=== PATIENT | female | born 1995 ===

== ENCOUNTER 2017-03-26 10:40 | Emergency (ER) | payer MEDICAID ==
[2017-03-26 10:40] VITALS: BMI 18.4
[2017-03-26 10:52] VITALS: BP 97/61; PULSE 76; RESP 15; TEMP 97.8; O2SAT 99
--- NOTE | 2017-03-26 11:02 | C.PDOC ---
History Of Present Illness 21 yo female, hx of asthma, presents with subjective fever, cough, sore throat, x 1 day, pt states no n/v/d, cough, abdominal pain, urinary changes, currently on period. no ear pain. (+)body aches Time Seen by Provider: 03/26/17 10:53 Chief Complaint (Nursing): Flu-like Symptoms Past Medical History Reviewed: Historical Data, Nursing Documentation, Vital Signs Vital Signs: Last Vital Signs Temp 97.8 F 03/26/17 10:50 Pulse 76 03/26/17 10:50 Resp 15 03/26/17 10:50 BP 97/61 L 03/26/17 10:50 Pulse Ox 99 03/26/17 11:42 - Medical History PMH: Anxiety, Asthma, Bipolar Disorder, Gastritis, Pancreatitis, Seizures ( denies 03/26/17) Denies: Diabetes, HIV, HTN, Chronic Kidney Disease, Sexually Transmitted Disease Family History: States: Unknown Family Hx - Social History Hx Tobacco Use: No Hx Alcohol Use: No Hx Substance Use: Yes (denies 03/26) - Immunization History Hx Tetanus Toxoid Vaccination: No Hx Influenza Vaccination: No Hx Pneumococcal Vaccination: No Review Of Systems Except As Marked, All Systems Reviewed And Found Negative. Constitutional: Positive for: Fever ENT: Positive for: Throat Pain Respiratory: Positive for: Cough. Negative for: Hemoptysis Physical Exam - Physical Exam Appears: Well, No Acute Distress, Other (speaking full sentences in nad) Skin: Normal Color, Warm, Dry Eye(s): bilateral: Normal Inspection, PERRL, EOMI Ear(s): Bilateral: Normal Nose: Normal Oral Mucosa: Moist Tongue: Normal Appearing Lips: Normal Appearing Throat: Erythema, No Exudate Neck: Normal Cardiovascular: Rhythm Regular Respiratory: Normal Breath Sounds Gastrointestinal/Abdominal: Normal Exam, Soft, No Tenderness, No Guarding, No Rebound Back: Normal Inspection Extremity: Normal ROM ED Course And Treatment O2 Sat by Pulse Oximetry: 99 Medical Decision Making Medical Decision Making: suspected viral syndrome. r/o pna, strep, influenza. pt reassesed. well appearingspeaking full sentences. stable for outpt management. advise outpt f/u and return precautions Disposition - Disposition Disposition: HOME/ ROUTINE Disposition Time: 11:41 Condition: STABLE Additional Instructions: please see your doctor/clinic. return to er with worsening symptoms or concerns. Prescriptions: Acetaminophen [Tylenol Extra Strength] 500 mg PO Q4 PRN #30 tablet PRN Reason: Fever >100.4 F Instructions: Viral Syndrome (ED) Forms: School Excuse - Clinical Impression Clinical Impression: Viral syndrome
--- NOTE | 2017-03-26 12:06 | RAD ---
HISTORY: Cough. COMPARISON: No prior. TECHNIQUE: Chest PA and lateral FINDINGS: LUNGS: No active pulmonary disease. PLEURA: No significant pleural effusion identified. No pneumothorax apparent. CARDIOVASCULAR: Normal. OSSEOUS STRUCTURES: No significant abnormalities. VISUALIZED UPPER ABDOMEN: Normal. OTHER FINDINGS: None. IMPRESSION: No active disease.
== END 2017-03-26 11:59 | disposition home or self-care (01) ==
LOC: C.ER 10:40
DX: B34.9 Viral infection, unspecified (principal)

== ENCOUNTER 2017-12-08 11:29 | Emergency (ER) | payer MEDICAID, OTHER ==
[2017-12-08 11:30] VITALS: BMI 18.4
[2017-12-08 11:44] VITALS: BP 105/59; PULSE 64; RESP 18; TEMP 98.3; O2SAT 100
--- NOTE | 2017-12-08 13:20 | C.PDOC ---
History Of Present Illness 22 year old female with a history of tonsillitis presents to the emergency department complaining of a sore throat for the past 4-5 days. Reports pain when swallowing but can tolerate oral administration. Denies any fever, chest pain, shortness of breath, or cough. Patient also denies any recent travel or sick contacts. PMD: No Primary Physician Chief Complaint (Nursing): ENT Problem History Per: Patient History/Exam Limitations: None Onset/Duration Of Symptoms: Days (x5) Current Symptoms Are (Timing): Still Present Past Medical History Reviewed: Historical Data, Nursing Documentation, Vital Signs Vital Signs: Last Vital Signs Temp 98.3 F 12/08/17 11:39 Pulse 64 12/08/17 11:39 Resp 18 12/08/17 11:39 BP 105/59 L 12/08/17 11:39 Pulse Ox 100 12/08/17 13:25 - Medical History PMH: Anxiety, Asthma, Bipolar Disorder, Gastritis, Pancreatitis, Seizures ( denies 03/26/17) Denies: Diabetes, HIV, HTN, Chronic Kidney Disease, Sexually Transmitted Disease Surgical History: No Surg Hx Family History: States: Unknown Family Hx - Social History Hx Tobacco Use: Yes (1 year) Hx Alcohol Use: No Hx Substance Use: No (denies 03/26) - Immunization History Hx Tetanus Toxoid Vaccination: No Hx Influenza Vaccination: No Hx Pneumococcal Vaccination: No Review Of Systems Except As Marked, All Systems Reviewed And Found Negative. Constitutional: Negative for: Fever ENT: Positive for: Throat Pain Cardiovascular: Negative for: Chest Pain Respiratory: Negative for: Cough, Shortness of Breath Physical Exam - Physical Exam Appears: Well, Non-toxic, No Acute Distress Skin: Normal Color, Warm, Dry Head: Atraumatic, Normacephalic Eye(s): bilateral: Normal Inspection, PERRL, EOMI Nose: Normal Throat: Erythema (Tonsils erythematous), No Exudate Neck: Normal Lymphatic: No Adenopathy Cardiovascular: Rhythm Regular, No Edema, No Murmur Respiratory: Normal Breath Sounds, No Accessory Muscle Use, No Wheezing Gastrointestinal/Abdominal: Normal Exam, No Tenderness, No Distention Neurological/Psych: Oriented x3 ED Course And Treatment O2 Sat by Pulse Oximetry: 100 (RA) Pulse Ox Interpretation: Normal Medical Decision Making Medical Decision Making: Time: 11:47 Initial Plan: --Throat Culture --Rapid Strep Patient is negative for strep. Discharge Time: 12:39 Upon reevaluation, patient was feeling better and discharged home. Patient is instructed to follow up with a primary care physician if symptoms worsen. Disposition - Disposition Referrals: Palak Tillman, [Non-Staff] - Disposition: HOME/ ROUTINE Disposition Time: 12:20 Condition: GOOD Additional Instructions: Thank you for letting us take care of you today. The emergency medical care you received today was directed at your acute symptoms. If you were prescribed any medication, please fill it and take as directed. It may take several days for your symptoms to resolve. Return to the Emergency Department if your symptoms worsen, do not improve, or if you have any other problems. Please contact your doctor or call one of the physicians/clinics you have been referred to that are listed on the Patient Visit Information form that is included in your discharge packet. Bring any paperwork you were given at discharge with you along with any medications you are taking to your follow up visit. Our treatment cannot replace ongoing medical care by a primary care provider (PCP) outside of the emergency department. Thank you for allowing the [facility] team to be part of your care today. Follow up with your doctor in 2-3 days for re-evaluation and further management. Instructions: Viral Syndrome (ED) Forms: Work Excuse - Clinical Impression Clinical Impression: Viral syndrome - Scribe Statement The provider has reviewed the documentation as recorded by the Scribe Mechelle Mendoza All medical record entries made by the Scribe were at my direction and personally dictated by me. I have reviewed the chart and agree that the record accurately reflects my personal performance of the history, physical exam, medical decision making, and the department course for this patient. I have also personally directed, reviewed, and agree with the discharge instructions and disposition.
== END 2017-12-08 12:40 | disposition home or self-care (01) ==
LOC: C.ER 11:29
DX: B34.9 Viral infection, unspecified (principal)

== ENCOUNTER 2018-02-01 16:09 | Emergency (ER) | payer MEDICAID, OTHER ==
[2018-02-01 16:09] VITALS: BMI 18.4
[2018-02-01 16:20] VITALS: RESP 18
[2018-02-01 17:25] LABS: BASO # 0.1 K/uL (0.0-0.2); BASO % 1.5 % (0.0-2.0); HEMOGLOBIN 12.4 g/dL (11.0-16.0); LYMPH # 2.7 K/uL (1.0-4.3); LYMPH % 32.3 % (20.0-40.0); MEAN CELL VOLUME 82.7 fL (81.0-99.0); MEAN CORPUSCULAR HEMOGLOBIN 27.3 pg (27.0-31.0); MEAN PLATELET VOLUME 8.3 fL (7.2-11.7); MONO # 0.5 K/uL (0.0-0.8); MONO % 5.6 % (0.0-10.0); NEUT # 5.1 K/uL (1.8-7.0); NEUT % 60.6 % (50.0-75.0); NRBC % 0.1 % (0.0-2.0); RBC 4.55 Mil/uL (3.80-5.20); RED CELL DISTRIBUTION WIDTH 14.9 % (11.5-14.5); WHITE BLOOD COUNT 8.4 K/uL (4.8-10.8)
[2018-02-01 17:30] LABS: SQUAMOUS EPITHIAL 7 /hpf (0-5); URINE BILIRUBIN NEGATIVE (NEGATIVE); URINE BLOOD NEGATIVE (NEGATIVE); URINE CLARITY Hazy (Clear); URINE COLOR Yellow (YELLOW); URINE GLUCOSE (UA) NORMAL (Normal); URINE LEUKOCYTE ESTERASE NEG Leu/uL (Negative); URINE PROTEIN NEGATIVE (NEGATIVE); URINE UROBILINOGEN NORMAL mg/dL (0.2-1.0)
[2018-02-01 17:34] LABS: HCG,QUALITATIVE URINE NEGATIVE (NEGATIVE)
[2018-02-01] MEDS ORDERED: Alum-Mag Hydrox-Simethicone Susp (30 mL) PO STA (17:43)
--- NOTE | 2018-02-01 17:43 | C.PDOC ---
History Of Present Illness Patient is a 22 y/o female, with a Hx of asthma, who presents to the ED with a complaint of a diffuse rash for approximately 2 months. 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 Patient admits to using lotion without relief; denies any medication use. Patient also notes her "pancreatits is acting up", stating experiencing nausea but no vomiting. Takes 4-5x Tums with moderate relief, noting allergy to amoxicillin. No other physical complaints at this time. Time Seen by Provider: 02/01/18 16:20 Chief Complaint (Nursing): Female Genitourinary History Per: Patient, Family (mother) History/Exam Limitations: no limitations Onset/Duration Of Symptoms: Days Current Symptoms Are (Timing): Still Present Context: Food Associated Symptoms: Nausea. denies: Vomiting Recent travel outside of the [place]: No Past Medical History Reviewed: Historical Data, Nursing Documentation, Vital Signs Vital Signs: Last Vital Signs Temp 98 F 02/01/18 18:32 Pulse 78 02/01/18 18:32 Resp 18 02/01/18 18:32 BP 126/86 02/01/18 18:32 Pulse Ox 98 02/01/18 18:32 - Medical History PMH: Anxiety, Asthma, Bipolar Disorder, Gastritis, Pancreatitis, Seizures ( denies 03/26/17) Denies: Diabetes, HIV, HTN, Chronic Kidney Disease, Sexually Transmitted Disease Surgical History: No Surg Hx Family History: States: No Known Family Hx - Social History Hx Tobacco Use: Yes (1 year) Hx Alcohol Use: No Hx Substance Use: No (denies 03/26) - Immunization History Hx Tetanus Toxoid Vaccination: No Hx Influenza Vaccination: No Hx Pneumococcal Vaccination: No Review Of Systems Gastrointestinal: Positive for: Nausea, Abdominal Pain. Negative for: Vomiting Genitourinary: Positive for: Other (questionable yeast infection) Skin: Positive for: Rash (diffuse) Physical Exam - Physical Exam Appears: Well, Non-toxic, No Acute Distress Skin: Normal Color, Warm, Dry, Rash (papular rash to chest, back, and bilateral legs) Head: Atraumatic, Normacephalic Eye(s): bilateral: Normal Inspection Oral Mucosa: Moist Chest: Symmetrical Cardiovascular: Rhythm Regular, No Friction Rub, No Murmur Respiratory: Normal Breath Sounds, No Rales, No Rhonchi, No Wheezing Gastrointestinal/Abdominal: Soft, No Tenderness Pelvic: Vaginal Discharge (white in nature), No Cervical Motion Tenderness, No Adnexal Tenderness, No Mass, No Tender Uterus Extremity: Normal ROM, No Swelling Neurological/Psych: Oriented x3, Normal Speech, Normal Cognition Gait: Steady ED Course And Treatment - Laboratory Results Result Diagrams: 02/01/18 17:21 02/01/18 17:21 O2 Sat by Pulse Oximetry: 100 (on RA) Pulse Ox Interpretation: Normal Progress Note: Blood work ordered. Pepcid, diflucan, and maalox administered. Medical Decision Making Medical Decision Making: On re-exam, the patient reports that she feels well. Abdomen is soft, non- tender and the patient is tolerating PO well. Lungs are CTA, heart is RRR. Ambulatory in the ED with steady gait. Follow up with the medical doctor/clinic within 1-2 days. Return if wrosened. Disposition - Disposition Referrals: [facility] [Outside] Disposition: HOME/ ROUTINE Disposition Time: 18:14 Condition: GOOD Additional Instructions: Follow up with the medical doctor/clinic within 1-2 days. Return if worsened. Prescriptions: Famotidine [Pepcid] 20 mg PO BID #20 tab Fluconazole [Diflucan] 150 mg PO ONCE #2 tab Ketoconazole [Nizoral] 120 ml TP BID #1 shampoo Ketoconazole 2% Cr [Nizoral] 60 gm EXT BID #3 tube Instructions: Ringworm, Athlete's Foot, and Jock Itch, Vaginal Yeast Infection (DC) Forms: [facility] (Welsh), Work Excuse - POA Present On Arrival: None - Clinical Impression Clinical Impression: Vulvovaginal candidiasis, Tinea corporis, Dyspepsia - Scribe Statement The provider has reviewed the documentation as recorded by the Scribe Lilian Rubio All medical record entries made by the Scribe were at my direction and personally dictated by me. I have reviewed the chart and agree that the record accurately reflects my personal performance of the history, physical exam, medical decision making, and the department course for this patient. I have also personally directed, reviewed, and agree with the discharge instructions and disposition.
[2018-02-01 17:52] LABS: ALB/GLOB RATIO 1.4 (1.0-2.1); ALBUMIN 5.1 g/dL (3.5-5.0); ALT/SGPT 12 U/L (9-52); AST/SGOT 31 U/L (14-36); BLOOD UREA NITROGEN 5 mg/dL (7-17); CALCIUM 9.9 mg/dl (8.6-10.4); GFR AFRICAN-AMERICAN > 60; GFR NON-AFRICAN AMERICAN > 60; LIPASE 54 U/L (23-300)
[2018-02-01] MEDS ORDERED: Aluminum Hydroxide/Magnesium Hydroxide Susp (30 mL) ONE (18:01)
[2018-02-01 18:33] VITALS: BP 126/86; PULSE 78; TEMP 98
[2018-02-02 13:40] VITALS: O2SAT 100
== END 2018-02-01 18:33 | disposition home or self-care (01) ==
LOC: C.ER 16:09
DX: B37.3 Candidiasis of vulva and vagina (principal); B35.4 Tinea corporis; R10.13 Epigastric pain